=== PATIENT | male | born 1960 | race Caucasian/White ===

== ENCOUNTER 2017-12-05 12:30 | Emergency (ER) | payer OTHER ==
[2017-12-05] MEDS: TETRACAINE 0.5% 4 ML OPH LEFT EYE (14:46)
== END 2017-12-05 18:55 | disposition home or self-care (01) ==
LOC: E/R 12:30
DX: H53.8 Other visual disturbances (principal); H33.22 Serous retinal detachment, left eye; I10 Essential (primary) hypertension; Z79.84 Long term (current) use of oral hypoglycemic drugs; Z87.891 Personal history of nicotine dependence
CPT/HCPCS: 76536; 82962; 99284-25

== ENCOUNTER 2018-10-19 10:59 | Emergency (ER) | payer OTHER | END 2018-10-19 12:14 | disposition home or self-care (01) | LOC: FTE 10:59 | DX: S00.211A Abrasion of right eyelid and periocular area, initial encounter (principal); H61.21 Impacted cerumen, right ear; I10 Essential (primary) hypertension; E11.9 Type 2 diabetes mellitus without complications; W22.8XXA Striking against or struck by other objects, initial encounter; Y92.9 Unspecified place or not applicable; Z79.84 Long term (current) use of oral hypoglycemic drugs | CPT/HCPCS: 69209; 99283-25 ==